=== PATIENT | male | born 2005 | race African-American/Black ===

== ENCOUNTER 2024-09-05 16:50 | Inpatient (IN) | payer MEDICAID, OTHER ==
[~2024-09-05] VITALS: Ht 167.6 cm; Wt 76.9 kg
[2024-09-05] MEDS: MIDAZOLAM HCL 2 MG/2 ML VIAL IM ONE (17:53)
[2024-09-05] MEDS: HALOPERIDOL LACTATE 5MG/ML VIAL IM ONE (17:56)
[2024-09-05] MEDS: DIPHENHYDRAMINE 50MG/ML VIAL IM ONE (17:56)
[2024-09-05 19:11] LABS: BASOPHILS % 0.2 % (0.0-2.0); EOSINOPHILS % 0.3 % (0.0-5.0); HEMATOCRIT. 44.4 % (42.0-52.0); HEMOGLOBIN. 14.6 g/dL (14.0-18.0); MEAN CORPUSCULAR HEMOGLOBIN 29.9 pg (28.0-32.0); MEAN CORPUSCULAR HGB CONC 32.9 g/dL (31.0-37.0); MEAN CORPUSCULAR VOLUME 90.6 fL (80.0-94.0); MEAN PLATELET VOLUME 7.9 fl (7.4-10.4); MONOCYTES % 5.5 % (2.0-8.0); PLATELET 257 x1000/uL (130-400); WHITE BLOOD COUNT 4.9 x1000/uL (4.5-11.0)
[2024-09-05 19:18] LABS: CHLORIDE 103 mEq/L (98-107); POTASSIUM 3.8 mEq/L (3.5-5.1); SODIUM 143 mEq/L (136-145)
[2024-09-05 19:19] LABS: CARBON DIOXIDE 30 mEq/L (21-32)
[2024-09-05 19:20] LABS: CALCIUM 9.7 mg/dL (8.7-10.4)
[2024-09-05 19:23] LABS: INR 1.1; PROTHROMBIN TIME 11.6 sec (9.6-11.0)
[2024-09-05 19:24] LABS: CREATININE 1.2 mg/dL (0.6-1.3); GLUCOSE 102 mg/dL (70-105); UREA NITROGEN BLOOD 11 mg/dL (9-23)
[2024-09-05 19:26] LABS: ACETAMINOPHEN < 2 ug/mL (10-30)
[2024-09-05 19:28] LABS: ETHANOL BLOOD < 10 mg/dL (<10)
[2024-09-05] MEDS: SODIUM CHLORIDE 0.9% 1,000 ML IV ONE ×2 (19:36→20:45)
[2024-09-05 21:00] VITALS: BP 123/79; PULSE 87; RESP 18; TEMP 36.5
[2024-09-05 21:27] LABS: ALANINE AMINOTRANSFERASE 22 IU/L (10-49); ALBUMIN 4.3 g/dL (3.2-4.8); ASPARTATE AMINOTRANSFERASE 20 IU/L (<34); BILIRUBIN DIRECT 0.6 mg/dL (<=3.0); BILIRUBIN TOTAL 1.6 mg/dL (0.1-1.0); PROTEIN TOTAL 7.5 g/dL (6.0-8.3)
[2024-09-05 21:30] VITALS: BP 123/79; PULSE 81; RESP 18; TEMP 36.1; O2SAT 96
[2024-09-05] MEDS ORDERED: GUAIFENESIN 200MG/10ML SUGAR FREE UDC PO PRN (22:15)
[2024-09-05] MEDS ORDERED: CLONIDINE 0.1MG TABLET PO PRN (22:15)
[2024-09-05] MEDS ORDERED: ACETAMINOPHEN 325MG TABLET PO PRN (22:15)
[2024-09-05] MEDS ORDERED: IPRATROPIUM/ALBUTEROL 0.5-3(2.5)MG/3ML NEB HHN PRN (22:15)
[2024-09-05] MEDS ORDERED: MAGNESIUM/ALUMINUM HYDROXIDE/SIMETHICONE 30ML UDC PO PRN (22:15)
[2024-09-05] MEDS ORDERED: DOCUSATE SODIUM 100MG CAPSULE PO PRN (22:15)
[2024-09-05] MEDS ORDERED: NA PHOS,M-B/NA PHOS,DI-BA ENEMA 118ML PR PRN (22:15)
[2024-09-05] MEDS ORDERED: ONDANSETRON HCL 4MG/2ML INJ IV PRN (22:15)
[2024-09-06] VITALS: BP 108/58; PULSE 74; RESP 18; TEMP 36.2; O2SAT 95
[2024-09-06 00:56] LABS: CLARITY URINE CLEAR (CLEAR); COLOR URINE YELLOW (YELLOW); GLUCOSE URINE NEGATIVE (NEGATIVE); KETONES URINE NEGATIVE (NEGATIVE); LEUKOCYTE ESTERASE URINE NEGATIVE (NEGATIVE); NITRITE URINE NEGATIVE (NEGATIVE); OCCULT BLOOD URINE NEGATIVE (NEGATIVE); PROTEIN URINE NEGATIVE (NEGATIVE); SPECIFIC GRAVITY URINE 1.007 (1.005-1.030)
[2024-09-06 01:12] LABS: AMMONIA 33 uMol/L (<32)
[2024-09-06 01:13] LABS: PHOSPHORUS 3.7 mg/dL (2.5-4.9)
[2024-09-06 01:16] LABS: FOLIC ACID (FOLATE) SERUM 8.58 ng/mL (>5.38); THYROID STIMULATING HORMONE 0.37 uIU/mL (0.55-4.78)
[2024-09-06 01:16] LABS: *AMPHETAMINES SCREEN URINE NEGATIVE (NEGATIVE); *BARBITURATES SCREEN URINE NEGATIVE (NEGATIVE); *BENZODIAZEPINES SCREEN URINE PRESUMPTIVE POSITIVE (NEGATIVE); *COCAINE SCREEN URINE NEGATIVE (NEGATIVE); CANNABINOID URINE SCREEN PRESUMPTIVE POSITIVE (NEGATIVE); ECSTASY MDMA SCREEN URINE NEGATIVE (NEGATIVE); METHADONE URINE SCREEN NEGATIVE (NEGATIVE); OPIATES URINE SCREEN NEGATIVE (NEGATIVE); PHENCYCLIDINE URINE SCREEN NEGATIVE (NEGATIVE)
[2024-09-06 01:17] LABS: VITAMIN B12 SERUM 388 pg/mL (211-911)
[2024-09-06] MEDS: LACTULOSE ENEMA 1,000ML BOTTLE PR NR (01:30)
[2024-09-06 01:45] LABS: TROPONIN I HIGH SENSITIVITY 7 ng/L (3.0-53)
[2024-09-06] MEDS: FOLIC ACID 1 MG, THIAMINE HCL 100 MG, MVI, ADULT NO.1 10 ML in DEXTROSE 5% WATER 1,000 ML IV ONE (02:35)
[2024-09-06 04:00] VITALS: BP 108/68; PULSE 70; RESP 18; TEMP 35.2; O2SAT 100
[2024-09-06 08:00] VITALS: BP 117/75; PULSE 73; RESP 18; TEMP 36; O2SAT 98
[2024-09-06] MEDS: PANTOPRAZOLE SODIUM 40 MG/VIAL IV SCH (08:08)
[2024-09-06 12:00] VITALS: BP 118/70; PULSE 85; RESP 19; TEMP 36.1; O2SAT 97
[2024-09-06] MEDS: FOLIC ACID 1MG TABLET PO SCH (12:45)
[2024-09-06] MEDS: MULTIVITAMINS,THER W-MINERALS TABLET PO SCH (12:45)
[2024-09-06] MEDS: LORAZEPAM 1MG TABLET PO NR (12:53)
[2024-09-06 13:00] LABS: BASOPHILS % 0.4 % (0.0-2.0); EOSINOPHILS % 1.9 % (0.0-5.0); HEMOGLOBIN. 14.6 g/dL (14.0-18.0); LYMPHOCYTES % 20.9 % (20.0-50.0); MEAN CORPUSCULAR HEMOGLOBIN 29.7 pg (28.0-32.0); MEAN CORPUSCULAR HGB CONC 33.1 g/dL (31.0-37.0); MEAN CORPUSCULAR VOLUME 89.8 fL (80.0-94.0); MEAN PLATELET VOLUME 7.8 fl (7.4-10.4); MONOCYTES % 9.5 % (2.0-8.0); NEUTROPHILS % 67.3 % (40.0-76.0); PLATELET 230 x1000/uL (130-400); RED BLOOD CELL COUNT 4.91 mill/uL (4.7-6.1); RED CELL DISTRIBUTION WIDTH 14.2 % (11.6-14.6); WHITE BLOOD COUNT 3.6 x1000/uL (4.5-11.0)
[2024-09-06] MEDS ORDERED: LORAZEPAM 2MG/ML INJ IV PRN (13:00)
[2024-09-06 13:13] LABS: CARBON DIOXIDE 26 mEq/L (21-32); CHLORIDE 106 mEq/L (98-107); POTASSIUM 3.7 mEq/L (3.5-5.1); SODIUM 142 mEq/L (136-145)
[2024-09-06 13:14] LABS: CALCIUM 9.6 mg/dL (8.7-10.4)
[2024-09-06 13:18] LABS: GLUCOSE 102 mg/dL (70-105)
[2024-09-06 13:19] LABS: TRIGLYCERIDE 55 mg/dL (0-150); UREA NITROGEN BLOOD 6 mg/dL (9-23)
[2024-09-06 13:20] LABS: LDL CHOLESTEROL 51 mg/dL (5-100)
[2024-09-06 13:21] LABS: CHOLESTEROL 107 mg/dL (<200); CREATINE KINASE 1012 IU/L (46-171); HDL CHOLESTEROL 43 mg/dL (>55)
[2024-09-06 13:29] LABS: TROPONIN I HIGH SENSITIVITY < 4 ng/L (3.0-53)
[2024-09-06] MEDS ORDERED: LORAZEPAM 1MG TABLET PO PRN ×3 (14:00)
[2024-09-06 16:00] VITALS: BP_SYST 113; BP_SYST 115; BP_DIAS 63; BP_DIAS 72; PULSE 68; PULSE 71; RESP 16; RESP 17; TEMP 36.5; TEMP 36.7; O2SAT 97; O2SAT 98
[2024-09-06 17:10] LABS: CREATINE KINASE 925 IU/L (46-171)
[2024-09-06 17:20] LABS: TROPONIN I HIGH SENSITIVITY < 4 ng/L (3.0-53)
[2024-09-06 20:00] VITALS: BP 120/69; PULSE 79; RESP 20; TEMP 36.2; O2SAT 97
[2024-09-06] MEDS: DEXT 5%/0.9% NACL 1,000 ML IV SCH (21:31)
[2024-09-06] MEDS: ACETAMINOPHEN 325MG TABLET PO PRN (23:28)
[2024-09-07] VITALS: BP 114/69; PULSE 66; RESP 18; TEMP 36.3; O2SAT 98
[2024-09-07 04:00] VITALS: BP 103/59; PULSE 65; RESP 18; TEMP 36.4; O2SAT 98
[2024-09-07 06:22] LABS: CHLORIDE 105 mEq/L (98-107); POTASSIUM 3.3 mEq/L (3.5-5.1); SODIUM 142 mEq/L (136-145)
[2024-09-07 06:23] LABS: CARBON DIOXIDE 26 mEq/L (21-32)
[2024-09-07 06:24] LABS: CALCIUM 9.3 mg/dL (8.7-10.4)
[2024-09-07 06:28] LABS: GLUCOSE 93 mg/dL (70-105)
[2024-09-07 06:29] LABS: CREATINE KINASE 801 IU/L (46-171); UREA NITROGEN BLOOD 6 mg/dL (9-23)
[2024-09-07 06:30] LABS: BASOPHILS % 0.8 % (0.0-2.0); HEMATOCRIT. 42.1 % (42.0-52.0); LYMPHOCYTES % 32.9 % (20.0-50.0); MEAN CORPUSCULAR HEMOGLOBIN 29.9 pg (28.0-32.0); MEAN CORPUSCULAR HGB CONC 33.1 g/dL (31.0-37.0); MEAN CORPUSCULAR VOLUME 90.1 fL (80.0-94.0); NEUTROPHILS % 52.3 % (40.0-76.0); PLATELET 215 x1000/uL (130-400); RED BLOOD CELL COUNT 4.67 mill/uL (4.7-6.1); WHITE BLOOD COUNT 3.7 x1000/uL (4.5-11.0)
[2024-09-07 06:31] LABS: PHOSPHORUS 3.2 mg/dL (2.5-4.9)
[2024-09-07 08:00] VITALS: BP 119/71; PULSE 63; RESP 18; TEMP 36.1; O2SAT 100
[2024-09-07] MEDS: POTASSIUM CHLORIDE 20MEQ TABLET SR PO NR (08:46)
[2024-09-07 12:00] VITALS: BP 117/60; PULSE 80; RESP 18; TEMP 36.6; O2SAT 100
[2024-09-07] MEDS ORDERED: LORAZEPAM 2MG/ML UD SYRINGE IV PRN (15:30)
[2024-09-07 16:00] VITALS: BP 106/71; PULSE 68; RESP 18; TEMP 36; O2SAT 100
[2024-09-07 16:04] VITALS: BP 117/60; PULSE 80; TEMP 97.9; O2SAT 100
[2024-09-09] MEDS ORDERED: THIAMINE HCL 100MG TABLET PO SCH (09:00)
== END 2024-09-07 16:06 | disposition home or self-care (01) | DRG 52 ==
LOC: ER 17:02 → EDBEDREQ 20:33 → EDBEDREQTM 20:33 → 6WST 21:31
PROVIDERS: ADMIT Hospitalist; ATTEND Hospitalist
DX: G92.8 Other toxic encephalopathy (principal); E72.20 Disorder of urea cycle metabolism, unspecified; I24.9 Acute ischemic heart disease, unspecified; F12.929 Cannabis use, unspecified with intoxication, unspecified; T40.715A Adverse effect of cannabis, initial encounter; Y92.89 Other specified places as the place of occurrence of the external cause; E80.6 Other disorders of bilirubin metabolism; F19.239 Other psychoactive substance dependence with withdrawal, unspecified
CPT/HCPCS: 36415; 71045; 74018; 76700; 80048; 80061; 80076; 80305; 80307; 80320; 80329; 81003; 82140; 82550; 82607; 82746; 82962; 83036; 83605; 83735; 83880; 83930; 84100; 84439; 84443; 84484; 85025; 93005; 99285; A4606; J1200; J1630; J2250; J2470; J3411; J3490; J7030; J7042; J7070; G0480